=== PATIENT | female | born 1965 | race Caucasian/White ===

== ENCOUNTER 2019-04-16 14:02 | Emergency (ER) | payer OTHER ==
[~2019-04-16] VITALS: Ht 162.6 cm; Wt 56.2 kg
[2019-04-16 14:11] VITALS: Ht 162.6 cm; Wt 56.2 kg
[2019-04-16 17:44] VITALS: BP 118/71
== END 2019-04-16 17:44 | disposition home or self-care (01) ==
LOC: ED 14:02
DX: J02.9 Acute pharyngitis, unspecified (principal)